=== PATIENT | male | born 1960 | race Caucasian/White ===

== ENCOUNTER 2019-06-03 09:48 | Emergency (ER) | payer OTHER ==
[~2019-06-03] VITALS: Ht 165.1 cm; Wt 56.7 kg
[~2019-06-03 09:48] MED LIST: FLEXERIL PO; IBUPROFEN 800800 MG PO; LORTAB 5 MG/5001 TA1 PO; NOHOMEMEDICATIONS; NORCO 5-325 TA1 EACH PO; SEROQUEL 100 M100 MG PO
[2019-06-03 12:37] LABS: HEMATOCRIT 44.2 % (42.0-52.0); HEMOGLOBIN 14.7 gm/dL (14.0-18.0); MCH 31.6 pg (26.0-34.0); MCHC 33.3 g/dL (28.0-37.0); MCV 94.8 fL (80.0-100.0); PLATELET COUNT 445 thou/uL (150-400); RBC 4.66 mil/uL (4.50-6.00); RDW 15.7 % (10.5-14.5); WBC 9.8 thou/uL (4.0-11.0)
[2019-06-03 12:42] LABS: ANION GAP 8 mmol/L (7-16); BUN 10 mg/dL (7-18); CALCIUM 8.9 mg/dL (8.5-10.1); CHLORIDE 106 mmol/L (98-107); CO2 26 mmol/L (21-32); CREATININE 0.8 mg/dL (0.7-1.3); GLUCOSE 92 mg/dL (74-106); POTASSIUM 3.9 mmol/L (3.5-5.1); SODIUM 140 mmol/L (136-145)
[2019-06-03 12:52] LABS: ALBUMIN 3.4 g/dL (3.4-5.0); MAGNESIUM 2.1 mg/dL (1.8-2.4); SGOT 22 U/L (15-37); SGPT 14 U/L (30-65); TOTAL BILIRUBIN 0.7 mg/dL (<0.1-1.0); TOTAL PROTEIN 7.5 g/dL (6.4-8.2); TROPONIN-I <0.06 ng/mL (<0.06)
[2019-06-03 13:06] LABS: ABSOLUTE NEUTROPHILS 5.6 thou/uL (1.4-8.2)
[2019-06-03 14:21] LABS: URINE BLOOD NEGATIVE (Negative); URINE CLARITY CLEAR; URINE COLOR YELLOW; URINE GLUCOSE-RANDOM* NEGATIVE (Negative); URINE KETONES 1+ (Negative); URINE LEUKOCYTES-REFLEX NEGATIVE (Negative); URINE NITRITE-REFLEX NEGATIVE (Negative); URINE PROTEIN (DIPSTICK) NEGATIVE (Negative); URINE SPECIFIC GRAVITY 1.015 (1.005-1.035)
[2019-06-03 14:22] LABS: ICTOTEST (BILI CONFIRMATORY) Negative (Negative); URINE BILIRUBIN NEGATIVE (Negative)
[2019-06-03 14:27] LABS: AMP/METHAMP Negative (Negative); BARBITURATES Negative (Negative); BENZODIAZEPINES POSITIVE (Negative); COCAINE Negative (Negative); METHADONE Negative (Negative); OPIATES Negative (Negative); PCP Negative (Negative)
[2019-06-03 17:04] VITALS: BP 118/72
--- NOTE | 2019-06-04 15:09 | EKG ---
[address] [address] ELECTROCARDIOGRAM REPORT Name: SVITLANA GARCIA Room [facility] [id number] Admission: 06/03/19 Attend Phys: Discharge: 06/03/19 Date of : 62 Report #: [id number] THIS REPORT FOR: //name// [facility] ED Test Date: 2019-06-03 Test Time: 12:12:27 Pat Name: SVITLANA GARCIA Department: Room: Gender: M [employer] [place]: [place] : 1960 Requested By: Jeremiah Evans Order Number: [id number] MD: Conner Pacheco Measurements Intervals [place] Rate: 75 P: 55 CT: 162 QRS: 40 QRSD: 88 T: 32 QT: 384 QTc: 429 Interpretive Statements Sinus rhythm Compared to ECG 07/28/2000 21:45:31 No significant changes Electronically Signed On 06-04-2019 15:09:08 CDT by Conner Pacheco [email or web address] <ELECTRONICALLY SIGNED> By: Conner Pacheco MD 06/04/19 1509 1211 11 Conner Pacheco MD /NATALIE
== END 2019-06-03 17:05 | disposition home or self-care (01) ==
LOC: ER 09:48
PROVIDERS: Emergency Medicine
DX: R53.1 Weakness (principal); Z59.0 Homelessness; R41.82 Altered mental status, unspecified; Z88.8 Allergy status to other drugs, medicaments and biological substances; Z90.81 Acquired absence of spleen; Z90.2 Acquired absence of lung [part of]